=== PATIENT | female | born 1960 | race Caucasian/White ===

== ENCOUNTER 2019-12-10 15:40 | Outpatient (REF) | payer OTHER, SELFPAY ==
[2019-12-12 17:46] LABS: COVID-19 RT-PCR Result NEGATIVE (Negative)
== END 2019-12-10 16:00 ==
LOC: NCHCN 15:40
PROVIDERS: Visit Provider Nurse Practitioner Community Health
DX: B34.9 Viral infection, unspecified (principal)
CPT/HCPCS: U0003

== ENCOUNTER 2023-04-19 12:02 | Outpatient (REF) | payer BC, SELFPAY ==
[2023-04-19 14:52] LABS: HCT 42.1 % (36.0-46.0); HGB 14.1 g/dL (11.2-15.7); MCH 30.3 pg (27.0-33.0); MCHC 33.5 % (32.0-36.0); MCV 91 fL (80-95); MPV 10.9 fL (8.0-11.0); Platelet Count 258 10^3/uL (130-400); RBC 4.65 10^6/uL (3.93-5.22); RDW 12.7 % (11.7-14.6); WBC 7.14 10^3/uL (4.4-10.8)
[2023-04-19 15:08] LABS: Hemoglobin A1C 6.7 % (<5.7)
[2023-04-19 15:23] LABS: ALT 60 U/L (14-59); AST 30 U/L (15-37); Albumin 3.8 g/dL (3.4-5.0); Alkaline Phosphatase 114 U/L (46-116); Anion Gap 8.5 mmol/L (3-11); BUN 11 mg/dL (7-18); Bilirubin, Total 0.4 mg/dL (0.2-1.0); CO2 27.5 mmol/L (21.0-32.0); CREATININE 0.6 mg/dL (0.55-1.02); Calcium 9.4 mg/dL (8.5-10.1); Calculated LDL 101 mg/dL (<100); Chloride 106 mmol/L (98-107); Cholesterol 172 mg/dL (<200); Estimated GFR 100.17 (mL/min/1.73m2); Glucose 106 mg/dL (74-106); HDL Cholesterol 52 mg/dL (40-60); Potassium 4.3 mmol/L (3.5-5.1); Sodium 142 mmol/L (136-145); TSH 4.11 uIU/mL (0.36-3.74); Total Protein 7.5 g/dL (6.4-8.2); Triglyceride 97 mg/dL (<150)
== END 2023-04-19 12:03 | disposition home or self-care (01) ==
LOC: NCHCN 12:02
PROVIDERS: Visit Provider Nurse Practitioner Family
DX: Z13.0 Encounter for screening for diseases of the blood and blood-forming organs and certain disorders involving the immune mechanism (principal); Z13.220 Encounter for screening for lipoid disorders
CPT/HCPCS: 80053; 80061; 85027; 83036; 84443

== ENCOUNTER 2023-04-27 11:08 | Outpatient (REF) | payer BC, SELFPAY ==
--- OUTSIDE RECORDS SUMMARY | 2023-04-27 11:15 | XMS_ITS | CCD ---
Author Name Unknown Address [address] [place] [address] [id number] Organization Unknown Address [address] [place] [address] [id number] Care Team Providers Care [employer] Name Role Phone ARELIS GONZALEZ Attending Physician [phone] ARELIS GONZALEZ Er Physician [phone] Vital Signs Vital Sign Value Unit Date/Time Recent/Initial ? BMI (Body Mass Index) 33.28 kg/m^2 12/02/2021 03: 54 Initial VS Weight Measured 200 lbs 12/02/2021 03:54 Ini tial VS Height 65 in 12/02/2021 03:54 Initial VS BSA (Body Surface Area) 2.04 m^2 12/02/2021 0 3:54 Initial VS BP Systolic 172 mmHg 12/02/2021 03:54 Initial VS BP Diastolic 108 mmHg 12/02/2021 03:54 Initia l VS Respiratory Rate 24 bpm 12/02/2021 03:54 In itial VS Heart Rate 80 bpm 12/02/2021 03:54 Initial VS O2 % BldC Oximetry 96 % 12/02/2021 03:54 Initial VS Body Temperature 36.1 degrees 12/02/2021 03:54 In itial VS Allergies Allergy Code Allergy Type Reaction Status No Known Allergies 0 No known allergies Active Procedures Unknown or Not Available. History of Immunizations Unknown or Not Available. Problems Unknown or Not Available. Results ARSENIO COVID RHEONIX* - Landy ect Date/Time: 12/02/2021 04:35 Test Name Code Test Result Test Units Test Ref Rang e Tier- 84184-5 SYMPTOMS N/A SARS COV2 RNA: 30812-4 NEGATIVE N/A REFERENCE RANGE: NEGAT Active Medications Medications Administered During Visit Medication Dose Units Frequency Route Date/Time of Last Dose PredniSONE TABLET: 20MG 60 MG X1 PO 12/02/2021 04:10 ALBUTEROL/IPRATROP RESPIMAT INHALER 1 PUFF X1 INH 12/02/2021 04:10 Encounters Encounter Diagnosis Diagnosis Code Start Date Unspecified asthma with (acute) exacerbation J45 901 12/02/2021 Social History Smoking Status Code Start Date End Date Current every day smoker [id number] Patient Decision Aids Unknown or Not Available. Discharge Instructions You were admitted to [facility] on 12/02/2021 03:52 with a principal diagnosis of Unspecified asthma with (acute) exacerbation You had the following tests done:ARSENIO COVID RHEONIX* You were discharged from [facility] on 12/02/2021 04:29 Should you have any questions prior to discharge, please contact a member of your healthcare team. If you have left the hospital and have any questions, please contact your primary care physician. Chief Complaint and Reason For Visit Chief Complaint Date of Onset SHORT OF BREATH Function Status Unknown or Not Available. Plan of Care Unknown or Not Available. Referral/Transition of Care Unknown or Not Available.
[2023-04-27 14:58] LABS: Hemoglobin A1C 6.8 % (<5.7)
[2023-04-27 16:13] LABS: TSH (W/Ref FT4) 4.71 uIU/mL (0.36-3.74)
[2023-04-27 16:47] LABS: FREE T4 0.76 ng/dL (0.76-1.46)
[2023-04-27 22:20] LABS: Thyroperoxidase Antibody 106 U/mL (<=60)
[2023-04-27 22:22] LABS: Thyroglobulin Antibody 24 U/mL (<=60)
== END 2023-04-27 11:09 | disposition home or self-care (01) ==
LOC: NCHCN 11:08
PROVIDERS: Referring Provider Nurse Practitioner Family; Visit Provider Nurse Practitioner Family
DX: E11.9 Type 2 diabetes mellitus without complications (principal); R94.6 Abnormal results of thyroid function studies
CPT/HCPCS: 83036; 84439; 84443; 86376; 86800